=== PATIENT | male | born 1975 | race Asian ===

== ENCOUNTER 2018-09-19 12:58 | Day surgery (SDC) | payer OTHER ==
[~2018-09-19 12:58] MED LIST: CEFAZOLIN 2 GM/50 ML (PMX) 50 ML IVPB; DEXAMETHASONE 4 MG/ML 1 ML INJ; ONDANSETRON 4 MG INJ; SOD CHLORIDE 0.9% 1,000 ML IV
[2018-09-19 14:31] LABS: ADD MAN DIFF? NO
[2018-09-19 14:35] LABS: WHITE BLOOD COUNT 9.6 10^3/ul (4.8-10.8)
[2018-09-19 14:35] LABS: BASOPHIL # 0.1 10^3/ul (0.0-0.1); BASOPHILS % 0.5 % (0.0-2.0); EOSINOPHILS # 0.1 10^3/ul (0.0-0.5); EOSINOPHILS % 0.6 % (0.0-7.0); HEMATOCRIT 44.2 % (42.0-52.0); HEMOGLOBIN 14.6 g/dl (14.0-18.0); LYMPHOCYTES # 2.1 10^3/ul (0.8-2.9); LYMPHOCYTES % 22.2 % (15.0-51.0); MEAN CORPUSCULAR HEMOGLOBIN 27.9 pg (29.0-33.0); MEAN CORPUSCULAR VOLUME 84.5 fl (82.0-101.0); MEAN PLATELET VOLUME 8.4 fl (7.4-10.4); MONOCYTE # 0.5 10^3/ul (0.3-0.9); MONOCYTES % 5.4 % (0.0-11.0); NEUTROPHIL # 6.8 10^3/ul (1.6-7.5); PLATELET COUNT 307 10^3/UL (140-415); RED BLOOD COUNT 5.23 10^6/ul (4.70-6.10); RED CELL DISTRIBUTION WIDTH 13.3 % (11.5-14.5)
[2018-09-19 14:52] LABS: ALANINE AMINOTRANSFERASE 36 IU/L (13-69); ALBUMIN 3.9 g/dl (3.3-4.9); ALBUMIN/GLOBULIN RATIO 1.05; ALKALINE PHOSPHATASE 92 IU/L (42-121); ANION GAP 6 (5-13); ASPARTATE AMINO TRANSFERASE 30 IU/L (15-46); BILIRUBIN,INDIRECT 0.5 mg/dl (0-1.1); BILIRUBIN,TOTAL 0.5 mg/dl (0.2-1.3); BLOOD UREA NITROGEN 14 mg/dl (7-20); CALCIUM 9.5 mg/dl (8.4-10.2); CARBON DIOXIDE 28 mmol/L (21-31); CHLORIDE 106 mmol/L (97-110); CREATININE 0.78 mg/dl (0.61-1.24); GLUCOSE 100 mg/dl (70-220); POTASSIUM 4.2 mmol/L (3.5-5.1); SODIUM 140 mmol/L (135-144); TOTAL PROTEIN 7.6 g/dl (6.1-8.1)
[2018-09-19 15:20] LABS: INR 0.83; PROTIME 11.5 Sec (11.9-14.9); PT RATIO 0.9
[2018-09-19 15:21] LABS: PARTIAL THROMBOPLASTIN TIME 28.9 Sec (23.0-35.0)
[2018-09-19] MEDS ORDERED: PROPOFOL 20 ML (17:03)
[2018-09-19] MEDS ORDERED: ROCURONIUM 50 MG INJ (17:04)
[2018-09-19] MEDS ORDERED: ACETAMINOPHEN 1000MG/100ML IV 100 ML (17:34)
[2018-09-19] MEDS ORDERED: CEFAZOLIN 1 GM INJ (17:34)
[2018-09-19] MEDS: BUPIVACAINE 0.25% (MPF) 30 ML INJ (17:42)
[2018-09-19] MEDS: POLYMYXIN/BACITRACIN 1L IRRIG IRR (17:42)
[2018-09-19] MEDS ORDERED: SUGAMMADEX SODIUM 200 MG/2 ML VIAL IV (17:58)
[2018-09-19] MEDS ORDERED: HYDROCODONE/APAP (5/325) TAB PO (18:00)
[2018-09-19] MEDS ORDERED: OXYCODONE/ACETAMINOPHEN (5/325) TAB PO ×2 (18:30)
[2018-09-19] MEDS ORDERED: KETOROLAC 30 MG INJ IV (18:30)
[2018-09-19] MEDS ORDERED: DIPHENHYDRAMINE 50 MG INJ IV (18:30)
[2018-09-19] MEDS ORDERED: FENTAnyl 50 MCG/ML VIAL IV ×3 (18:30)
[2018-09-19] MEDS ORDERED: ONDANSETRON 4 MG INJ IV (18:30)
[2018-09-19] MEDS ORDERED: LABETALOL HCL 20MG INJ IV (18:30)
[2018-09-19] MEDS ORDERED: MEPERIDINE 25 MG INJ IV (18:30)
[2018-09-19] MEDS ORDERED: hydrALAzine 20 MG INJ IV (18:30)
[2018-09-19] MEDS ORDERED: ALBUTEROL 0.083% (NEB) 2.5 MG/3 ML AMP HHN (18:30)
[2018-09-19] MEDS ORDERED: METOCLOPRAMIDE 10 MG INJ IV (18:30)
[2018-09-19] MEDS ORDERED: EPHEDrine SULFATE 50 MG/5 ML SYG IV (18:30)
[2018-09-19] MEDS ORDERED: HYDROmorphONE 1 MG/5 ML IV SYRINGE IV ×3 (18:30)
== END 2018-09-19 19:08 | disposition home or self-care (01) ==
LOC: SDS 12:58
DX: K40.30 Unilateral inguinal hernia, with obstruction, without gangrene, not specified as recurrent (principal); F17.200 Nicotine dependence, unspecified, uncomplicated
CPT/HCPCS: 49507; 71045; 80053; 85025; 85610; 85730; 93005